=== PATIENT | female | born 1980 | race Hispanic/Latino ===

== ENCOUNTER 2020-04-06 10:45 | Day surgery (SDC) | payer BC ==
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
[~2020-04-06 10:45] MED LIST: LACTATED RINGERS 1,000 ML IV SCH; MIDAZOLAM 2 MG/2 ML INJ IV NR
[2020-04-06] MEDS ORDERED: ONDANSETRON 4 MG/2 ML INJ IV PRN (11:43)
--- NOTE | 2020-04-06 11:43 | Anesthesia Day of Surgery ---
Anesthesia Day of Surgery - Day of Surgery Patient Examined: Yes Patient H&P Reviewed: Yes Patient is NPO: Yes
--- NOTE | 2020-04-06 11:43 | Anesthesia Consultation ---
Anesthesia Consult and Med Hx Date of service: 04/06/20 - Airway Anesthetic Teeth Evaluation: Good ROM Head & Neck: Adequate Mental/Hyoid Distance: Adequate Mallampati Class: Class I Intubation Access Assessment: Good - Pulmonary Exam CTA: Yes - Cardiac Exam Cardiac Exam: RRR - Pre-Operative Health Status ASA Pre-Surgery Classification: ASA2 Proposed Anesthetic Plan: General - Pulmonary Hx Smoking: No Hx Respiratory Symptoms: No - Cardiovascular System Hx Hypertension: No - Central Nervous System CVA: No - Endocrine Hx Renal Disease: No Hx Liver Disease: No Hx Insulin Dependent Diabetes: No Hx Non-Insulin Dependent Diabetes: No Hx Hypothyroidism: Yes - Other Systems Hx Obesity: Yes (BMI 30)
[2020-04-06] MEDS ORDERED: HYDROmorphone 1 MG/1 ML INJ ONE (12:46)
[2020-04-06] MEDS ORDERED: LIDOCAINE MPF (2%) 20 MG/1 ML VIAL 5 ML ONE ×2 (12:47)
[2020-04-06] MEDS ORDERED: propofoL 200 MG/20 ML VIAL IV ONE (12:47)
[2020-04-06] MEDS ORDERED: KETOROLAC 30 MG/1 ML INJ ONE (13:32)
[2020-04-06] MEDS ORDERED: ONDANSETRON 4 MG/2 ML INJ ONE (13:32)
[2020-04-06] MEDS ORDERED: SODIUM CHLORIDE 0.9% IRRIG SOLN 3000 ML IR ONE (13:39)
[2020-04-06] MEDS: fentaNYL 100 MCG/2 ML INJ IV PRN ×3 (13:52→14:10)
--- NOTE | 2020-04-06 13:53 | Short Stay Summary ---
Short Stay Documentation Date of service: 04/06/20 - History Past Medical History: other (SEE HPI FOR DETAILS) Past Surgical History: Other (SEE HPI FOR DETAILS) Social history: full code, other (SEE HPI FOR DETAILS) - Allergies and Medications Current Medications: Allergies No Known Allergies Allergy (Unverified 04/04/20 17:31) Home Medications Medication Instructions Recorded Confirmed Last Taken Type Levothyroxine Sodium [Synthroid] 200 mcg PO DAILY 04/04/20 04/06/20 04/05/20 20:00 History Liothyronine Sodium [Cytomel] 5 mcg PO DAILY 04/04/20 04/06/20 04/05/20 20:00 History Active Medications Fentanyl (Fentanyl 100 Mcg/2 Ml Inj) 50 mcg IV Q5MIN PRN PRN Reason: Pain , Severe (7-10) Stop: 04/07/20 11:42 Lactated Ringer's (Lactated Ringers) 1,000 mls @ 100 mls/hr IV DIRECT HOMA Stop: 04/06/20 23:59 Last Admin: 04/06/20 11:25 Dose: 100 mls/hr Documented by: Midazolam HCl (Versed) 2 mg IV PREOP NR Stop: 04/06/20 21:00 Last Admin: 04/06/20 11:36 Dose: 2 mg Documented by: Ondansetron HCl (Ondansetron 4 Mg/2 Ml Inj) 4 mg IV ONCE PRN PRN Reason: Nausea And Vomiting - Physical exam General appearance: no acute distress Lungs: Normal air movement Heart: Regular rate Female Genitourinary: deferred Rectal Exam: deferred Extremities: no ischemia - Brief post op/procedure progress note Date of procedure: 04/06/20 (See dictated operative note) - Hospital course Hospital course: Patient was admitted underwent the above him procedure without any complications. Patient will be discharged with follow-up in office in 1-2 weeks for postop check. - Disposition Condition at discharge: Good Disposition: DC-01 TO HOME OR SELFCARE - Discharge Diagnoses (1) Menorrhagia Status: Acute Qualifiers: Menorrhagia type: with regular cycle Qualified Code(s): N92.0 - Excessive and frequent menstruation with regular cycle (2) Intramural leiomyoma of uterus Status: Chronic (3) Pepe thyroiditis, fibrous variant Status: Chronic Short Stay Discharge Plan Activity: advance as tolerated Diet: regular Additional Instructions: Call office for fever chills nausea vomiting or excessive vaginal bleeding Follow up with: JOSELIN BANERJEE MD [Primary Care Provider] - 7 Days Prescriptions: Ibuprofen [Motrin 800 MG tab] 800 mg PO Q6H PRN #30 tablet PRN Reason: Pain DOXYCYCLINE Hyclate [Vibramycin CAP] 100 mg PO Q12HR #14 capsule
--- NOTE | 2020-04-06 14:01 | Operative Report ---
Operative Report Operative Report: Date of procedure: April 06, 2020 Pre-operative diagnosis: Menorrhagia Post-operative diagnosis: Same Procedure name(s): NovaSure endometrial ablation with hysteroscopy Surgeon: Sulaiman Hernandez MD Senior Microstrategy Developer: None Anesthesia: General EBL: Minimal Complications: None Findings: Patient with thickened endometrial lining tubal ostium seen bilaterally Specimen(s): None Procedure: Patient was brought to operating room. Where general anesthesia was induced on difficulty. She was placed in the dorsal lithotomy position. Prepped and draped in usual sterile manner. Urinary bladder was emptied with a red rubber catheter. Speculum was placed in the vagina. The cervical length and uterine cavity was then assessed with a sound. Cervical length was 3.0 cm the total uterine cavity was 7 cm. The hysteroscope was then placed through the cervical os. With the findings as noted above. The NovaSure was then placed through the cervical os the uterine width was then measured at the 4.9 cm. After passing the testing for cavity integrity, and NovaSure ablation was then started. The power setting was at 86 W and the procedure lasted 100 seconds. The NovaSure applicator was then removed. There was large amount of tissue on the NovaSure. Post procedure hysteroscopy showed a complete cavity ablation. Our instruments are removed. The patient tolerated the procedure well and was awakened in the operating room. Accompanied to recovery in good condition.
[2020-04-06] MEDS ORDERED: HYDROcodone/ACETAMINOPHEN 5-325 MG TAB PO PRN (14:03)
[2020-04-06] MEDS ORDERED: hydrALAZINE 20 MG/1 ML INJ ONE (14:21)
[2020-04-06 14:36] VITALS: BP 146/94
--- NOTE | 2020-04-06 14:51 | Post Anesthesia Evaluation ---
- Post Anesthesia Evaluation Patient Participated: Yes Airway Patent: Yes Stable Respiratory Function: Yes Nausea/Vomiting: No Temp > 96.8F: Yes Pain Manageable: Yes Adequeate Hydration: Yes Anesthesia Complications: No
[2020-04-06] MEDS ORDERED: hydrALAZINE 20 MG/1 ML INJ IV ONE (15:24)
== END 2020-04-06 15:05 | disposition home or self-care (01) ==
LOC: OR 10:45
PROVIDERS: ATTEND Obstetrics & Gynecology
DX: N92.0 Excessive and frequent menstruation with regular cycle (principal); E06.3 Autoimmune thyroiditis; D25.1 Intramural leiomyoma of uterus; E66.9 Obesity, unspecified; E03.9 Hypothyroidism, unspecified; Z79.899 Other long term (current) drug therapy; Z87.891 Personal history of nicotine dependence; Z98.890 Other specified postprocedural states; Z68.30 Body mass index [BMI] 30.0-30.9, adult
CPT/HCPCS: 58563; 81025; A4217; J0360; J1170; J1885; J2250; J2405; J2704; J3010; J7120